=== PATIENT | male | born 1960 | race Two or more races ===

== ENCOUNTER 2018-10-25 05:40 | Emergency (ER) | payer MEDICAID ==
[~2018-10-25] VITALS: Ht 182.9 cm; Wt 86.6 kg
[2018-10-25 05:45] VITALS: BP_SYST 130
[2018-10-25] MEDS ORDERED: LIP20 PO (06:03)
[2018-10-25] MEDS ORDERED: GLU850 PO (06:04)
[2018-10-25] MEDS ORDERED: SITA100T11 PO (06:04)
[2018-10-25] MEDS ORDERED: ASPI-1153 PO (06:04)
[2018-10-25] MEDS ORDERED: IBUPROFEN 800 MG TABLET PO ONE (06:30)
[2018-10-25] MEDS ORDERED: CYCLOBENZAPRINE HCL 10 MG TABLET (FLEXERIL) PO ONE (06:30)
[2018-10-25 06:58] VITALS: BP_SYST 132
== END 2018-10-25 06:58 | disposition home or self-care (01) ==
LOC: SED 05:40
DX: S16.1XXA Strain of muscle, fascia and tendon at neck level, initial encounter (principal); S20.219A Contusion of unspecified front wall of thorax, initial encounter; M25.561 Pain in right knee; I10 Essential (primary) hypertension; E11.9 Type 2 diabetes mellitus without complications; Z79.82 Long term (current) use of aspirin; Z79.84 Long term (current) use of oral hypoglycemic drugs; Z79.899 Other long term (current) drug therapy; V47.5XXA Car driver injured in collision with fixed or stationary object in traffic accident, initial encounter; Y93.89 Activity, other specified; Y92.410 Unspecified street and highway as the place of occurrence of the external cause; Y99.8 Other external cause status
CPT/HCPCS: 71045; 72040-TC; 73564; 99283